=== PATIENT | female | born 1945 | race Caucasian/White ===

== ENCOUNTER 2016-09-28 11:39 | Inpatient (IN) | payer MEDICARE ==
[~2016-09-28] VITALS: Ht 157.5 cm; Wt 103.8 kg
[~2016-09-28 11:39] MED LIST: ALBU8.5H5 INH; DOXY100C15 PO; FLUT16SP INH; FLUT16SP NAS; FLUT1DIS5 IH; FLUT1DIS5 INH; LOVASTATIN PO; OXYC-302 PO; PRED5TAB25 PO; TIOT18CA INH; UNKNOWN INHALER
[2016-09-28] MEDS ORDERED: SODIUM CHLORIDE 0.9% 1,000 ML IV ONE (13:13)
[2016-09-28] MEDS ORDERED: LIDOCAINE 1%, 20ML SQ ONE (13:30)
[2016-09-28] MEDS ORDERED: CEFAZOLIN 1,000 MG IM ONE (13:30)
[2016-09-28] MEDS ORDERED: MORPHINE SULFATE 4 MG/ML, 1ML IV PRN (13:30)
[2016-09-28] MEDS ORDERED: SODIUM CHLORIDE FLUSH 10ML SYR IVF ONE (13:30)
[2016-09-28] MEDS ORDERED: LIDOCAINE 1%, 20ML ONE (13:40)
[2016-09-28] MEDS ORDERED: MORPHINE SULFATE 4 MG/ML, 1ML ONE (13:40)
[2016-09-28] MEDS ORDERED: CEFAZOLIN PMX 1GM/50ML 50 ML ONE (13:52)
[2016-09-28] MEDS ORDERED: CEFAZOLIN 1,000 MG IV ONE (14:00)
[2016-09-28 14:23] LABS: ASPARTATE AMINO TRANSFERASE 20 U/L (15-37); BLOOD UREA NITROGEN 24 mg/dL (7-18)
[2016-09-28 14:30] LABS: DIFF TOTAL CELLS COUNTED 100 CELL DIFF
[2016-09-28] MEDS ORDERED: PIPERACILLIN/TAZO 3.375 GM in SODIUM CHLORIDE 0.9% 50 ML IV ONE (14:30)
[2016-09-28] MEDS ORDERED: VANCOMYCIN PER PHARMACY MC PRN ×2 (14:30→17:30)
[2016-09-28 14:31] LABS: VERIFY COUNTS? YES
[2016-09-28] MEDS ORDERED: VANCOMYCIN 2,000 MG in SODIUM CHLORIDE 0.9% 500 ML IV ONE (15:00)
[2016-09-28] MEDS ORDERED: PHARMACOKINETIC CONSULTATION MC ONE ×2 (15:00→20:00)
[2016-09-28] MEDS ORDERED: PIPERACILLIN/TAZO/PMX 3.375GM 50 ML ONE (16:42)
[2016-09-28] MEDS ORDERED: POLYETHYLENE GLYCOL 17 GM PACKET PO PRN (17:30)
[2016-09-28] MEDS ORDERED: ENALAPRILAT 1.25 MG/ML, 2ML IVPush PRN (17:30)
[2016-09-28] MEDS ORDERED: HYDROcodone/APAP 5/325 TABLET PO PRN (17:30)
[2016-09-28] MEDS ORDERED: PIPERACILLIN/TAZO 3.375 GM in SODIUM CHLORIDE 0.9% 50 ML IV SCH (17:30)
[2016-09-28] MEDS ORDERED: PROMETHAZINE 25 MG/ML, 1ML IM PRN (17:30)
[2016-09-28] MEDS ORDERED: PHARMACY MAY ADJ FOR RENAL FX MC PRN (17:30)
[2016-09-28] MEDS ORDERED: ENOXAPARIN 40 MG/0.4 ML SQ SCH (17:30)
[2016-09-28] MEDS ORDERED: SODIUM CHLORIDE 0.9% 1,000ML IVBOLUS ONE (17:30)
[2016-09-28] MEDS ORDERED: LABETALOL 5MG/ML, 20ML IVPush PRN (17:30)
[2016-09-28] MEDS ORDERED: DOCUSATE 100 MG CAPSULE PO PRN (17:30)
[2016-09-28] MEDS ORDERED: BISACODYL 10 MG SUPP PR PRN (17:30)
[2016-09-28] MEDS ORDERED: DEXTROSE 50%, 50ML SYRINGE IVPush PRN (18:00)
[2016-09-28] MEDS ORDERED: GLUCAGON 1 MG IM PRN (18:00)
[2016-09-28] MEDS ORDERED: DEXTROSE 4 GM TAB.CHEW PO PRN (18:00)
[2016-09-28] MEDS ORDERED: PHARMACOKINETIC MONITORING MC PRN (20:00)
[2016-09-28] MEDS ORDERED: VANCOMYCIN 2,000 MG in SODIUM CHLORIDE 0.9% 500 ML IV SCH (21:00)
[2016-09-28] MEDS: INSULIN ASPART 100 UNITS/ML, PEN SQ-INSULIN SCH (21:00)
[2016-09-28] MEDS: SODIUM CHLORIDE 0.9% 1,000 ML IV SCH (21:36)
[2016-09-28] MEDS: SODIUM CHLORIDE FLUSH 10ML SYR IVF SCH (21:38)
[2016-09-28] MEDS: ENOXAPARIN 30 MG/0.3 ML SQ SCH (21:38)
[2016-09-28] MEDS: ALBUTEROL/IPRATROPIUM 2.5MG/0.5MG, 3 ML NPPB SCH (22:25)
[2016-09-29 02:00] VITALS: BP 116/72
[2016-09-29] MEDS: PIPERACILLIN/TAZO/PMX 3.375GM 50 ML IV SCH ×4 (03:01→20:28)
[2016-09-29] MEDS: ACETAMINOPHEN 325 MG TABLET PO PRN (03:15)
[2016-09-29] MEDS: morphine SULFATE 10 MG/ML, 1ML IVPush PRN (03:35)
[2016-09-29] MEDS: METOCLOPRAMIDE 5 MG/ML, 2ML IVPush PRN (03:35)
[2016-09-29 04:36] VITALS: BP 121/68
[2016-09-29 05:47] LABS: ASPARTATE AMINO TRANSFERASE 16 U/L (15-37); BLOOD UREA NITROGEN 25 mg/dL (7-18)
[2016-09-29 06:03] LABS: DIFF TOTAL CELLS COUNTED 100 CELL DIFF
[2016-09-29 06:04] LABS: VERIFY COUNTS? YES
[2016-09-29] MEDS: INSULIN ASPART 100 UNITS/ML, PEN SQ-INSULIN SCH ×4 (07:00→20:28)
[2016-09-29 07:15] VITALS: BP 97/62
[2016-09-29] MEDS: ALBUTEROL/IPRATROPIUM 2.5MG/0.5MG, 3 ML NPPB SCH ×3 (07:45→20:05)
[2016-09-29] MEDS: SENNA/DOCUSATE TABLET PO SCH (09:00)
[2016-09-29] MEDS ORDERED: MAGNESIUM SULFATE PMX 4GM/100M 100 ML IV ONE (10:00)
[2016-09-29] MEDS: FLUTICASONE NASAL SPRAY 16GM NAS SCH (10:11)
[2016-09-29] MEDS: FLUTICASONE/VILANTEROL 200-25MCG/INH INH SCH (10:11)
[2016-09-29] MEDS: SODIUM CHLORIDE FLUSH 10ML SYR IVF SCH ×2 (10:12→20:28)
[2016-09-29] MEDS: SODIUM CHLORIDE 0.9% 1,000 ML IV SCH (10:12)
[2016-09-29] MEDS: POTASSIUM CHLORIDE 20 MEQ TAB.ER.PRT PO SCH ×2 (12:18→17:19)
[2016-09-29] MEDS: ONDANSETRON 2MG/ML, 2ML IVPush PRN (12:31)
[2016-09-29 13:14] VITALS: BP 93/57
[2016-09-29 18:33] VITALS: BP 92/46
[2016-09-29] MEDS: ENOXAPARIN 30 MG/0.3 ML SQ SCH (20:28)
[2016-09-29] MEDS ORDERED: PHARMACY MAY ADJ FOR RENAL FX MC PRN (22:00)
[2016-09-29] MEDS ORDERED: GLUCAGON 1 MG IM PRN (22:00)
[2016-09-29] MEDS ORDERED: DOCUSATE 100 MG CAPSULE PO PRN (22:00)
[2016-09-29] MEDS ORDERED: PHARMACOKINETIC MONITORING MC PRN (22:00)
[2016-09-29] MEDS ORDERED: DEXTROSE 50%, 50ML SYRINGE IVPush PRN (22:00)
[2016-09-29] MEDS ORDERED: BISACODYL 10 MG SUPP PR PRN (22:00)
[2016-09-30] MEDS: SODIUM CHLORIDE 0.9% 1,000 ML IV SCH ×2 (00:59→16:00)
[2016-09-30 01:36] VITALS: BP 112/67
[2016-09-30] MEDS: PIPERACILLIN/TAZO/PMX 3.375GM 50 ML IV SCH ×2 (03:08→08:59)
[2016-09-30] MEDS: ONDANSETRON 2MG/ML, 2ML IVPush PRN (03:51)
[2016-09-30 05:37] LABS: BLOOD UREA NITROGEN 44 mg/dL (7-18)
[2016-09-30] MEDS ORDERED: VANCOMYCIN 2,000 MG in SODIUM CHLORIDE 0.9% 500 ML IV SCH (06:00)
[2016-09-30] MEDS: INSULIN ASPART 100 UNITS/ML, PEN SQ-INSULIN SCH ×4 (07:00→21:00)
[2016-09-30 07:10] VITALS: BP 127/61
[2016-09-30 07:12] LABS: DIFF TOTAL CELLS COUNTED 100 CELL DIFF
[2016-09-30 07:15] LABS: ANISOCYTOSIS 1+; VERIFY COUNTS? YES
[2016-09-30] MEDS: ALBUTEROL/IPRATROPIUM 2.5MG/0.5MG, 3 ML NPPB SCH ×2 (07:45→14:45)
[2016-09-30] MEDS: POTASSIUM CHLORIDE 20 MEQ TAB.ER.PRT PO SCH ×2 (08:58→12:28)
[2016-09-30] MEDS: FLUTICASONE NASAL SPRAY 16GM NAS SCH (08:58)
[2016-09-30] MEDS: FLUTICASONE/VILANTEROL 200-25MCG/INH INH SCH (08:58)
[2016-09-30] MEDS: MAGNESIUM OXIDE 400 MG TABLET PO SCH (08:58)
[2016-09-30] MEDS: SODIUM CHLORIDE FLUSH 10ML SYR IVF SCH ×2 (08:59→21:12)
[2016-09-30] MEDS: SENNA/DOCUSATE TABLET PO SCH (08:59)
[2016-09-30] MEDS: HEPARIN 5,000 UNITS/ML, 1ML SQ SCH ×2 (12:27→21:12)
[2016-09-30] MEDS: LINEZOLID PMX 600MG/300ML 300 ML IV SCH (12:27)
[2016-09-30 14:00] VITALS: BP 125/62
[2016-09-30] MEDS ORDERED: ALBUTEROL SULFATE 2.5 MG/3 ML NPPB PRN (15:00)
[2016-09-30] MEDS: PIPERACILLIN/TAZO 2.25 GM in NS 50 ML IV SCH ×2 (15:47→22:27)
[2016-09-30] MEDS: ALBUTEROL SULFATE 2.5 MG/3 ML NPPB SCH ×2 (16:00→21:00)
[2016-09-30 19:29] VITALS: BP 119/69
[2016-09-30] MEDS: METOCLOPRAMIDE 5 MG/ML, 2ML IVPush PRN (21:00)
[2016-10-01 02:00] VITALS: BP 134/64
[2016-10-01] MEDS: SODIUM CHLORIDE 0.9% 1,000 ML IV SCH ×3 (02:00→23:35)
[2016-10-01] MEDS ORDERED: CALCIUM CARBONATE 500 MG TAB.CHEW PO PRN (03:30)
[2016-10-01] MEDS: HEPARIN 5,000 UNITS/ML, 1ML SQ SCH ×3 (05:00→21:29)
[2016-10-01 05:54] LABS: ASPARTATE AMINO TRANSFERASE 12 U/L (15-37); BLOOD UREA NITROGEN 58 mg/dL (7-18)
[2016-10-01] MEDS: INSULIN ASPART 100 UNITS/ML, PEN SQ-INSULIN SCH ×4 (07:00→21:00)
[2016-10-01 07:11] VITALS: BP 131/50
[2016-10-01] MEDS: FLUTICASONE NASAL SPRAY 16GM NAS SCH (08:23)
[2016-10-01] MEDS: PIPERACILLIN/TAZO/PMX 2.25GM 50 ML IVPB SCH ×2 (08:23→16:56)
[2016-10-01] MEDS: FLUTICASONE/VILANTEROL 200-25MCG/INH INH SCH (08:24)
[2016-10-01] MEDS: SENNA/DOCUSATE TABLET PO SCH (08:24)
[2016-10-01] MEDS: SODIUM CHLORIDE FLUSH 10ML SYR IVF SCH ×2 (08:24→21:29)
[2016-10-01] MEDS: MAGNESIUM OXIDE 400 MG TABLET PO SCH (08:24)
[2016-10-01] MEDS: ALBUTEROL SULFATE 2.5 MG/3 ML NPPB SCH ×3 (08:35→21:00)
[2016-10-01] MEDS: LINEZOLID PMX 600MG/300ML 300 ML IV SCH ×3 (11:51→23:35)
[2016-10-01 14:02] VITALS: BP 118/69
[2016-10-01 20:00] VITALS: BP 108/66
[2016-10-02 01:31] VITALS: BP 124/76
[2016-10-02] MEDS: PIPERACILLIN/TAZO/PMX 2.25GM 50 ML IVPB SCH ×3 (01:32→17:12)
[2016-10-02] MEDS: HEPARIN 5,000 UNITS/ML, 1ML SQ SCH ×3 (05:22→21:26)
[2016-10-02 06:32] LABS: ASPARTATE AMINO TRANSFERASE 13 U/L (15-37); BLOOD UREA NITROGEN 63 mg/dL (7-18)
[2016-10-02] MEDS: INSULIN ASPART 100 UNITS/ML, PEN SQ-INSULIN SCH ×4 (07:00→20:43)
[2016-10-02 07:30] VITALS: BP 153/83
[2016-10-02] MEDS: ONDANSETRON 2MG/ML, 2ML IVPush PRN (07:55)
[2016-10-02] MEDS: SENNA/DOCUSATE TABLET PO SCH (09:00)
[2016-10-02] MEDS: MAGNESIUM OXIDE 400 MG TABLET PO SCH (09:00)
[2016-10-02] MEDS: FLUTICASONE/VILANTEROL 200-25MCG/INH INH SCH (09:14)
[2016-10-02] MEDS: FLUTICASONE NASAL SPRAY 16GM NAS SCH (09:15)
[2016-10-02] MEDS: SODIUM CHLORIDE FLUSH 10ML SYR IVF SCH ×2 (09:22→21:27)
[2016-10-02] MEDS: ALBUTEROL SULFATE 2.5 MG/3 ML NPPB SCH (10:45)
[2016-10-02] MEDS: SODIUM CHLORIDE 0.9% 1,000 ML IV SCH ×2 (12:50→21:27)
[2016-10-02] MEDS: LINEZOLID PMX 600MG/300ML 300 ML IV SCH (12:50)
[2016-10-02 14:10] VITALS: BP 154/73
[2016-10-02] MEDS: FUROSEMIDE 80 MG TABLET PO SCH (17:09)
[2016-10-02 22:00] VITALS: BP 143/83
[2016-10-03] MEDS: LINEZOLID PMX 600MG/300ML 300 ML IV SCH ×2 (00:46→12:05)
[2016-10-03 02:00] VITALS: BP 118/67
[2016-10-03] MEDS: HEPARIN 5,000 UNITS/ML, 1ML SQ SCH ×3 (05:44→21:20)
[2016-10-03] MEDS: FUROSEMIDE 80 MG TABLET PO SCH ×2 (05:44→17:15)
[2016-10-03 05:53] LABS: ASPARTATE AMINO TRANSFERASE 12 U/L (15-37); BLOOD UREA NITROGEN 73 mg/dL (7-18)
[2016-10-03] MEDS: INSULIN ASPART 100 UNITS/ML, PEN SQ-INSULIN SCH ×4 (07:00→20:25)
[2016-10-03] MEDS: SENNA/DOCUSATE TABLET PO SCH (09:00)
[2016-10-03] MEDS: FLUTICASONE NASAL SPRAY 16GM NAS SCH (09:05)
[2016-10-03] MEDS: SODIUM CHLORIDE FLUSH 10ML SYR IVF SCH ×2 (09:05→21:20)
[2016-10-03] MEDS: FLUTICASONE/VILANTEROL 200-25MCG/INH INH SCH (09:05)
[2016-10-03] MEDS: MAGNESIUM OXIDE 400 MG TABLET PO SCH (09:05)
[2016-10-03] MEDS: ALBUTEROL SULFATE 2.5 MG/3 ML NPPB SCH ×2 (10:45→20:23)
[2016-10-03] MEDS: LACTOBACILLUS CHEW TABLET PO SCH ×3 (12:01→20:26)
[2016-10-03] MEDS: morphine SULFATE 10 MG/ML, 1ML IVPush PRN (12:18)
[2016-10-03 13:40] VITALS: BP 125/60
[2016-10-03] MEDS: ONDANSETRON 2MG/ML, 2ML IVPush PRN (15:59)
[2016-10-03] MEDS: PANTOPRAZOLE 40 MG IV IVPush SCH (17:15)
[2016-10-03 17:23] VITALS: BP 167/63
[2016-10-03 20:00] VITALS: BP 159/58
[2016-10-03 20:58] LABS: GAS OBC PASS; GASTRIC OCCULT BLD POSITIVE (NEGATIVE); GASTRIC PH 4 (1-7)
[2016-10-03] MEDS: METOCLOPRAMIDE 5 MG/ML, 2ML IVPush PRN (21:20)
[2016-10-04] MEDS: LINEZOLID PMX 600MG/300ML 300 ML IV SCH ×2 (00:55→12:36)
[2016-10-04 02:00] VITALS: BP 123/51
[2016-10-04 04:06] LABS: COMPLEMENT C3 142 mg/dL (82-167); COMPLEMENT C4 21 mg/dL (14-44); COMPLEMENT TOTAL (CH50) >60 U/mL (42-60)
[2016-10-04] MEDS: FUROSEMIDE 80 MG TABLET PO SCH ×2 (06:00→17:15)
[2016-10-04] MEDS: LACTOBACILLUS CHEW TABLET PO SCH ×4 (06:00→21:29)
[2016-10-04 06:56] LABS: ASPARTATE AMINO TRANSFERASE 52 U/L (15-37); BLOOD UREA NITROGEN 100 mg/dL (7-18)
[2016-10-04] MEDS: HEPARIN 5,000 UNITS/ML, 1ML SQ SCH (07:00)
[2016-10-04] MEDS: INSULIN ASPART 100 UNITS/ML, PEN SQ-INSULIN SCH ×4 (07:00→20:11)
[2016-10-04 08:05] VITALS: BP 117/43
[2016-10-04 08:16] LABS: DIFF TOTAL CELLS COUNTED 100 CELL DIFF
[2016-10-04 08:18] LABS: VERIFY COUNTS? YES
[2016-10-04 08:19] LABS: ANISOCYTOSIS 1+
[2016-10-04] MEDS ORDERED: PROMETHAZINE 12.5 MG SUPP PR PRN (09:00)
[2016-10-04] MEDS: MAGNESIUM OXIDE 400 MG TABLET PO SCH (09:00)
[2016-10-04] MEDS: SENNA/DOCUSATE TABLET PO SCH (09:00)
[2016-10-04] MEDS: ALBUTEROL SULFATE 2.5 MG/3 ML NPPB SCH ×2 (10:41→20:54)
[2016-10-04] MEDS: SODIUM CHLORIDE FLUSH 10ML SYR IVF SCH ×2 (12:36→21:33)
[2016-10-04] MEDS: PANTOPRAZOLE 40 MG IV IVPush SCH ×2 (12:36→17:14)
[2016-10-04] MEDS: FLUTICASONE/VILANTEROL 200-25MCG/INH INH SCH (12:36)
[2016-10-04] MEDS: ONDANSETRON 2MG/ML, 2ML IVPush SCH ×3 (12:36→21:56)
[2016-10-04] MEDS: FLUTICASONE NASAL SPRAY 16GM NAS SCH (12:36)
[2016-10-04 14:31] LABS: OCCBLD OBC PASS
[2016-10-04 17:30] VITALS: BP 130/72
[2016-10-04 20:00] VITALS: BP 132/55
[2016-10-04] MEDS: morphine SULFATE 10 MG/ML, 1ML IVPush PRN (21:29)
[2016-10-05] VITALS (8 sets, daily range): BP systolic 104–136; BP diastolic 49–68
[2016-10-05] MEDS: LINEZOLID PMX 600MG/300ML 300 ML IV SCH ×2 (00:44→11:55)
[2016-10-05 04:37] LABS: ASPARTATE AMINO TRANSFERASE 54 U/L (15-37)
[2016-10-05 04:48] LABS: BLOOD UREA NITROGEN 115 mg/dL (7-18)
[2016-10-05 05:52] LABS: DIFF TOTAL CELLS COUNTED 100 CELL DIFF
[2016-10-05] MEDS: ONDANSETRON 2MG/ML, 2ML IVPush SCH ×4 (05:53→23:30)
[2016-10-05] MEDS: LACTOBACILLUS CHEW TABLET PO SCH ×4 (05:53→20:14)
[2016-10-05] MEDS: PANTOPRAZOLE 40 MG IV IVPush SCH ×2 (05:53→17:11)
[2016-10-05 05:55] LABS: ANISOCYTOSIS 1+; VERIFY COUNTS? YES
[2016-10-05] MEDS: INSULIN ASPART 100 UNITS/ML, PEN SQ-INSULIN SCH ×4 (07:00→20:23)
[2016-10-05] MEDS ORDERED: LIDOCAINE 1%, 10ML ONE (08:02)
[2016-10-05] MEDS ORDERED: PROPOFOL 10 MG/ML, 20ML ONE (08:02)
[2016-10-05] MEDS ORDERED: SUCCINYLCHOLINE 20 MG/ML, 10ML ONE (08:02)
[2016-10-05] MEDS ORDERED: FENTANYL PF 100 MCG/2ML ONE (08:03)
[2016-10-05] MEDS: ALBUTEROL SULFATE 2.5 MG/3 ML NPPB SCH ×2 (08:05→21:00)
[2016-10-05] MEDS: SENNA/DOCUSATE TABLET PO SCH (08:14)
[2016-10-05] MEDS: SODIUM CHLORIDE FLUSH 10ML SYR IVF SCH ×2 (08:15→20:15)
[2016-10-05] MEDS ORDERED: hydrALAzine 20 MG/ML, 1ML IV PRN (08:30)
[2016-10-05] MEDS ORDERED: OXYcodone 5 MG/5 ML ORAL.SOL UDC PO PRN (08:30)
[2016-10-05] MEDS ORDERED: PROMETHAZINE 25 MG/ML, 1ML IV PRN (08:30)
[2016-10-05] MEDS ORDERED: LABETALOL 5MG/ML, 20ML IV PRN (08:30)
[2016-10-05] MEDS ORDERED: ONDANSETRON 2MG/ML, 2ML IVPush PRN (08:30)
[2016-10-05] MEDS ORDERED: FENTANYL PF 100 MCG/2ML IV PRN (08:30)
[2016-10-05] MEDS: FLUTICASONE/VILANTEROL 200-25MCG/INH INH SCH (09:53)
[2016-10-05] MEDS: FLUTICASONE NASAL SPRAY 16GM NAS SCH (09:53)
[2016-10-05] MEDS: FUROSEMIDE 80 MG TABLET PO SCH ×2 (09:54→17:24)
[2016-10-05] MEDS: MAGNESIUM OXIDE 400 MG TABLET PO SCH (09:54)
[2016-10-05] MEDS: ACYCLOVIR OINT 5%, 15GM TP SCH ×4 (10:30→21:00)
[2016-10-05 11:19] LABS: TOTAL IRON BINDING CAPACITY 240 mcg/dL (250-450)
[2016-10-05] MEDS: SODIUM BICARBONATE 650 MG TABLET PO SCH ×2 (14:43→20:14)
[2016-10-06] MEDS: LINEZOLID PMX 600MG/300ML 300 ML IV SCH ×3 (00:07→23:31)
[2016-10-06 00:23] VITALS: BP 113/65
[2016-10-06] MEDS: LACTOBACILLUS CHEW TABLET PO SCH ×4 (05:11→20:34)
[2016-10-06] MEDS: PANTOPRAZOLE 40 MG IV IVPush SCH ×2 (05:11→16:29)
[2016-10-06] MEDS: ONDANSETRON 2MG/ML, 2ML IVPush SCH ×4 (05:17→23:31)
[2016-10-06] MEDS: FUROSEMIDE 80 MG TABLET PO SCH ×2 (05:34→20:34)
[2016-10-06] MEDS: ACYCLOVIR OINT 5%, 15GM TP SCH ×5 (05:38→21:00)
[2016-10-06 06:35] LABS: ASPARTATE AMINO TRANSFERASE 42 U/L (15-37)
[2016-10-06 06:44] LABS: BLOOD UREA NITROGEN 119 mg/dL (7-18)
[2016-10-06 06:58] LABS: DIFF TOTAL CELLS COUNTED 100 CELL DIFF
[2016-10-06] MEDS: INSULIN ASPART 100 UNITS/ML, PEN SQ-INSULIN SCH ×4 (07:00→20:04)
[2016-10-06 07:02] LABS: VERIFY COUNTS? YES
[2016-10-06 07:03] LABS: ANISOCYTOSIS 1+
[2016-10-06] MEDS: ALBUTEROL SULFATE 2.5 MG/3 ML NPPB SCH ×2 (07:45→19:22)
[2016-10-06 07:55] VITALS: BP 153/65
[2016-10-06] MEDS: SENNA/DOCUSATE TABLET PO SCH (09:00)
[2016-10-06] MEDS: FLUTICASONE NASAL SPRAY 16GM NAS SCH (09:53)
[2016-10-06] MEDS: MAGNESIUM OXIDE 400 MG TABLET PO SCH (09:53)
[2016-10-06] MEDS: SODIUM CHLORIDE FLUSH 10ML SYR IVF SCH ×2 (09:53→20:34)
[2016-10-06] MEDS: FLUTICASONE/VILANTEROL 200-25MCG/INH INH SCH (09:53)
[2016-10-06] MEDS: SODIUM BICARBONATE 650 MG TABLET PO SCH ×2 (09:54→20:34)
[2016-10-06] MEDS: CALCIUM ACETATE 667 MG CAPSULE PO SCH ×2 (11:46→16:29)
[2016-10-06 13:37] VITALS: BP 145/62
[2016-10-06 19:52] VITALS: BP 146/69
[2016-10-07 02:00] VITALS: BP 144/68
[2016-10-07] MEDS: ACYCLOVIR OINT 5%, 15GM TP SCH ×4 (05:03→17:51)
[2016-10-07] MEDS: PANTOPRAZOLE 40 MG IV IVPush SCH ×2 (05:04→17:50)
[2016-10-07] MEDS: FUROSEMIDE 80 MG TABLET PO SCH ×2 (05:04→17:50)
[2016-10-07] MEDS: ONDANSETRON 2MG/ML, 2ML IVPush SCH ×3 (05:04→17:50)
[2016-10-07] MEDS: LACTOBACILLUS CHEW TABLET PO SCH ×3 (05:04→16:00)
[2016-10-07 05:50] LABS: ASPARTATE AMINO TRANSFERASE 30 U/L (15-37)
[2016-10-07 05:53] LABS: BLOOD UREA NITROGEN 114 mg/dL (7-18)
[2016-10-07 06:16] LABS: DIFF TOTAL CELLS COUNTED 100 CELL DIFF
[2016-10-07 06:18] LABS: ANISOCYTOSIS 1+; VERIFY COUNTS? YES
[2016-10-07] MEDS: INSULIN ASPART 100 UNITS/ML, PEN SQ-INSULIN SCH ×4 (07:00→21:00)
[2016-10-07 07:08] VITALS: BP 134/65
[2016-10-07] MEDS: CALCIUM ACETATE 667 MG CAPSULE PO SCH ×3 (08:18→17:50)
[2016-10-07] MEDS: SENNA/DOCUSATE TABLET PO SCH (09:00)
[2016-10-07] MEDS: FLUTICASONE NASAL SPRAY 16GM NAS SCH (09:00)
[2016-10-07] MEDS: ALBUTEROL SULFATE 2.5 MG/3 ML NPPB SCH ×2 (09:00→21:00)
[2016-10-07] MEDS: SODIUM CHLORIDE FLUSH 10ML SYR IVF SCH (09:00)
[2016-10-07] MEDS: FLUTICASONE/VILANTEROL 200-25MCG/INH INH SCH (09:00)
[2016-10-07] MEDS: MAGNESIUM OXIDE 400 MG TABLET PO SCH (09:00)
[2016-10-07] MEDS: SODIUM BICARBONATE 650 MG TABLET PO SCH (09:00)
[2016-10-07] MEDS: LINEZOLID PMX 600MG/300ML 300 ML IV SCH (12:00)
[2016-10-07] MEDS ORDERED: MIDAZOLAM 1 MG/ML, 5ML ONE ×2 (15:46)
[2016-10-07] MEDS ORDERED: FLUMAZENIL 0.1 MG/1 ML, 5ML ONE (15:47)
[2016-10-07] MEDS ORDERED: FENTANYL PF 100 MCG/2ML ONE (15:47)
[2016-10-07] MEDS ORDERED: NALOXONE 1 MG/ML, 2ML ONE (15:47)
[2016-10-07 23:11] VITALS: BP 122/60
[2016-10-08] MEDS: SODIUM CHLORIDE FLUSH 10ML SYR IVF SCH ×3 (00:01→20:44)
[2016-10-08] MEDS: ACYCLOVIR OINT 5%, 15GM TP SCH ×6 (00:01→20:45)
[2016-10-08] MEDS: ONDANSETRON 2MG/ML, 2ML IVPush SCH ×5 (00:01→23:15)
[2016-10-08] MEDS: LINEZOLID PMX 600MG/300ML 300 ML IV SCH ×3 (05:00→17:47)
[2016-10-08] MEDS: PANTOPRAZOLE 40 MG IV IVPush SCH (05:19)
[2016-10-08] MEDS: LACTOBACILLUS CHEW TABLET PO SCH ×5 (05:20→20:45)
[2016-10-08] MEDS: FUROSEMIDE 80 MG TABLET PO SCH (05:20)
[2016-10-08 06:30] LABS: ASPARTATE AMINO TRANSFERASE 30 U/L (15-37); BLOOD UREA NITROGEN 63 mg/dL (7-18); TOTAL IRON BINDING CAPACITY 270 mcg/dL (250-450)
[2016-10-08 06:44] LABS: DIFF TOTAL CELLS COUNTED 100 CELL DIFF
[2016-10-08 06:48] LABS: ANISOCYTOSIS 1+; VERIFY COUNTS? YES
[2016-10-08] MEDS: INSULIN ASPART 100 UNITS/ML, PEN SQ-INSULIN SCH ×4 (07:00→20:35)
[2016-10-08 07:25] VITALS: BP 128/57
[2016-10-08] MEDS: ALBUTEROL SULFATE 2.5 MG/3 ML NPPB SCH ×2 (08:30→20:38)
[2016-10-08] MEDS: CALCIUM ACETATE 667 MG CAPSULE PO SCH ×3 (10:49→17:57)
[2016-10-08] MEDS: FLUTICASONE/VILANTEROL 200-25MCG/INH INH SCH (10:49)
[2016-10-08] MEDS: SODIUM BICARBONATE 650 MG TABLET PO SCH ×2 (10:50)
[2016-10-08] MEDS: MAGNESIUM OXIDE 400 MG TABLET PO SCH (10:50)
[2016-10-08] MEDS: FLUTICASONE NASAL SPRAY 16GM NAS SCH (10:50)
[2016-10-08] MEDS: SENNA/DOCUSATE TABLET PO SCH (11:25)
[2016-10-08 13:00] VITALS: BP 159/50
[2016-10-08 13:18] LABS: HEP B SURF. AB 4.2 mIU/mL (0.0-10.0)
[2016-10-08] MEDS: IRON SUCROSE COMPLEX 100MG/5ML IV SCH (17:45)
[2016-10-08] MEDS: DARBEPOETIN 60 MCG/ML SQ SCH (17:46)
[2016-10-08 20:02] VITALS: BP 150/69
[2016-10-08] MEDS: PANTOPROZOLE 40MG TABLET PO SCH (20:45)
[2016-10-09 00:15] VITALS: BP 118/60
[2016-10-09] MEDS: LACTOBACILLUS CHEW TABLET PO SCH ×4 (05:06→20:16)
[2016-10-09] MEDS: LINEZOLID PMX 600MG/300ML 300 ML IV SCH ×2 (05:06→17:33)
[2016-10-09] MEDS: ONDANSETRON 2MG/ML, 2ML IVPush SCH ×4 (05:06→23:15)
[2016-10-09] MEDS: ACYCLOVIR OINT 5%, 15GM TP SCH ×5 (05:07→20:17)
[2016-10-09 05:59] LABS: BLOOD UREA NITROGEN 40 mg/dL (7-18)
[2016-10-09 06:04] LABS: ASPARTATE AMINO TRANSFERASE 26 U/L (15-37)
[2016-10-09 06:40] LABS: DIFF TOTAL CELLS COUNTED 100 CELL DIFF
[2016-10-09 06:43] LABS: ANISOCYTOSIS 1+
[2016-10-09 06:48] LABS: VERIFY COUNTS? YES
[2016-10-09 07:55] VITALS: BP 140/64
[2016-10-09] MEDS: ALBUTEROL SULFATE 2.5 MG/3 ML NPPB SCH ×2 (08:50→20:34)
[2016-10-09] MEDS: SENNA/DOCUSATE TABLET PO SCH (09:14)
[2016-10-09] MEDS: INSULIN ASPART 100 UNITS/ML, PEN SQ-INSULIN SCH ×4 (09:25→20:17)
[2016-10-09] MEDS: CALCIUM ACETATE 667 MG CAPSULE PO SCH ×3 (09:26→17:33)
[2016-10-09] MEDS: SODIUM CHLORIDE FLUSH 10ML SYR IVF SCH ×2 (09:26→20:17)
[2016-10-09] MEDS: FLUTICASONE/VILANTEROL 200-25MCG/INH INH SCH (09:26)
[2016-10-09] MEDS: FUROSEMIDE 80 MG TABLET PO SCH (09:27)
[2016-10-09] MEDS: FLUTICASONE NASAL SPRAY 16GM NAS SCH (09:27)
[2016-10-09] MEDS: PANTOPROZOLE 40MG TABLET PO SCH ×2 (09:27→20:16)
[2016-10-09] MEDS: MAGNESIUM OXIDE 400 MG TABLET PO SCH (09:27)
[2016-10-09] MEDS: IRON SUCROSE COMPLEX 100MG/5ML IV SCH (12:35)
[2016-10-09 13:53] VITALS: BP 132/70
[2016-10-09 20:00] VITALS: BP 149/64
[2016-10-10 02:00] VITALS: BP 151/58
[2016-10-10] MEDS: ONDANSETRON 2MG/ML, 2ML IVPush SCH ×4 (05:11→22:54)
[2016-10-10] MEDS: LINEZOLID PMX 600MG/300ML 300 ML IV SCH ×2 (05:12→17:09)
[2016-10-10] MEDS: LACTOBACILLUS CHEW TABLET PO SCH ×5 (05:12→21:00)
[2016-10-10] MEDS: ACYCLOVIR OINT 5%, 15GM TP SCH ×5 (05:12→21:11)
[2016-10-10 06:16] LABS: ASPARTATE AMINO TRANSFERASE 12 U/L (15-37); BLOOD UREA NITROGEN 45 mg/dL (7-18)
[2016-10-10 06:34] LABS: DIFF TOTAL CELLS COUNTED 100 CELL DIFF
[2016-10-10 06:36] LABS: VERIFY COUNTS? YES
[2016-10-10 06:37] LABS: ANISOCYTOSIS 1+
[2016-10-10 06:38] LABS: SMALL PLATELETS 1+
[2016-10-10] MEDS: INSULIN ASPART 100 UNITS/ML, PEN SQ-INSULIN SCH ×4 (07:00→21:00)
[2016-10-10 08:30] VITALS: BP 137/73
[2016-10-10] MEDS: FUROSEMIDE 80 MG TABLET PO SCH (09:00)
[2016-10-10] MEDS: ALBUTEROL SULFATE 2.5 MG/3 ML NPPB SCH ×2 (09:00→20:23)
[2016-10-10] MEDS: SENNA/DOCUSATE TABLET PO SCH (09:00)
[2016-10-10] MEDS: MAGNESIUM OXIDE 400 MG TABLET PO SCH (09:00)
[2016-10-10] MEDS: FLUTICASONE NASAL SPRAY 16GM NAS SCH (09:04)
[2016-10-10] MEDS: CALCIUM ACETATE 667 MG CAPSULE PO SCH ×3 (09:04→17:11)
[2016-10-10] MEDS: SODIUM CHLORIDE FLUSH 10ML SYR IVF SCH ×2 (09:04→21:08)
[2016-10-10] MEDS: GUAIFENESIN ER 600 MG TABLET PO PRN (09:04)
[2016-10-10] MEDS: FLUTICASONE/VILANTEROL 200-25MCG/INH INH SCH (09:04)
[2016-10-10] MEDS: PANTOPROZOLE 40MG TABLET PO SCH ×2 (09:11→21:08)
[2016-10-10] MEDS: IRON SUCROSE COMPLEX 100MG/5ML IV SCH (11:42)
[2016-10-10] MEDS: LOPERAMIDE 2 MG CAPSULE PO PRN (14:46)
[2016-10-10 16:10] VITALS: BP 132/75
[2016-10-10 19:57] VITALS: BP 134/53
[2016-10-11 02:00] VITALS: BP 123/62
[2016-10-11 05:12] LABS: BLOOD UREA NITROGEN 22 mg/dL (7-18)
[2016-10-11] MEDS: ONDANSETRON 2MG/ML, 2ML IVPush SCH ×4 (05:51→18:30)
[2016-10-11] MEDS: LINEZOLID PMX 600MG/300ML 300 ML IV SCH ×2 (05:51→16:14)
[2016-10-11] MEDS: LACTOBACILLUS CHEW TABLET PO SCH ×4 (05:52→20:50)
[2016-10-11] MEDS: ACYCLOVIR OINT 5%, 15GM TP SCH ×5 (05:52→21:19)
[2016-10-11 06:40] LABS: DIFF TOTAL CELLS COUNTED 100 CELL DIFF
[2016-10-11 06:43] LABS: VERIFY COUNTS? YES
[2016-10-11 06:44] LABS: ANISOCYTOSIS 1+
[2016-10-11] MEDS: INSULIN ASPART 100 UNITS/ML, PEN SQ-INSULIN SCH ×4 (07:00→20:50)
[2016-10-11 07:45] VITALS: BP 125/56
[2016-10-11] MEDS ORDERED: MIDAZOLAM 1 MG/ML, 5ML ONE ×2 (08:27)
[2016-10-11] MEDS ORDERED: NALOXONE 1 MG/ML, 2ML ONE (08:28)
[2016-10-11] MEDS ORDERED: FLUMAZENIL 0.1 MG/1 ML, 5ML ONE (08:28)
[2016-10-11] MEDS ORDERED: LIDOCAINE 1%, 20ML ONE (08:28)
[2016-10-11] MEDS ORDERED: FENTANYL PF 100 MCG/2ML ONE ×2 (08:28)
[2016-10-11] MEDS: SENNA/DOCUSATE TABLET PO SCH (09:00)
[2016-10-11] MEDS: ALBUTEROL SULFATE 2.5 MG/3 ML NPPB SCH ×2 (10:05→19:27)
[2016-10-11] MEDS ORDERED: CATHFLO-ALTEPLASE 2 MG/2 ML CATHFLUSH ONE (10:30)
[2016-10-11] MEDS: FLUTICASONE NASAL SPRAY 16GM NAS SCH (10:38)
[2016-10-11] MEDS: FLUTICASONE/VILANTEROL 200-25MCG/INH INH SCH (10:38)
[2016-10-11] MEDS: PANTOPROZOLE 40MG TABLET PO SCH ×2 (10:39→20:50)
[2016-10-11] MEDS: SODIUM CHLORIDE FLUSH 10ML SYR IVF SCH ×2 (10:39→20:50)
[2016-10-11] MEDS: MAGNESIUM OXIDE 400 MG TABLET PO SCH (10:40)
[2016-10-11] MEDS: FUROSEMIDE 80 MG TABLET PO SCH (10:40)
[2016-10-11] MEDS: CALCIUM ACETATE 667 MG CAPSULE PO SCH ×3 (10:40→16:14)
[2016-10-11] MEDS: IRON SUCROSE COMPLEX 100MG/5ML IV SCH (12:26)
[2016-10-11 14:00] VITALS: BP 125/64
[2016-10-11 20:00] VITALS: BP 129/66
[2016-10-11] MEDS: GUAIFENESIN ER 600 MG TABLET PO PRN (21:19)
[2016-10-11] MEDS: NYSTATIN CRM 15GM TP SCH (21:19)
[2016-10-12] MEDS: ONDANSETRON 2MG/ML, 2ML IVPush SCH ×3 (01:23→11:30)
[2016-10-12] MEDS: LINEZOLID PMX 600MG/300ML 300 ML IV SCH ×2 (05:24→18:01)
[2016-10-12] MEDS: LACTOBACILLUS CHEW TABLET PO SCH ×4 (05:25→20:28)
[2016-10-12] MEDS: ACYCLOVIR OINT 5%, 15GM TP SCH ×5 (05:26→20:26)
[2016-10-12 05:28] VITALS: BP 130/65
[2016-10-12 06:26] LABS: BLOOD UREA NITROGEN 34 mg/dL (7-18)
[2016-10-12 06:52] LABS: DIFF TOTAL CELLS COUNTED 100 CELL DIFF
[2016-10-12 06:53] LABS: VERIFY COUNTS? YES
[2016-10-12 06:55] LABS: ANISOCYTOSIS 1+
[2016-10-12] MEDS: INSULIN ASPART 100 UNITS/ML, PEN SQ-INSULIN SCH ×4 (07:00→20:26)
[2016-10-12 08:38] VITALS: BP 154/65
[2016-10-12] MEDS: SENNA/DOCUSATE TABLET PO SCH (08:54)
[2016-10-12] MEDS: ALBUTEROL SULFATE 2.5 MG/3 ML NPPB SCH ×2 (09:00→19:25)
[2016-10-12] MEDS: FLUTICASONE NASAL SPRAY 16GM NAS SCH (09:08)
[2016-10-12] MEDS: CALCIUM ACETATE 667 MG CAPSULE PO SCH ×3 (09:15→18:01)
[2016-10-12] MEDS: PANTOPROZOLE 40MG TABLET PO SCH ×2 (09:17→20:28)
[2016-10-12] MEDS: MAGNESIUM OXIDE 400 MG TABLET PO SCH (09:18)
[2016-10-12] MEDS: FLUTICASONE/VILANTEROL 200-25MCG/INH INH SCH (09:19)
[2016-10-12] MEDS: NYSTATIN CRM 15GM TP SCH ×3 (09:20→20:26)
[2016-10-12] MEDS: SODIUM CHLORIDE FLUSH 10ML SYR IVF SCH ×2 (09:21→20:34)
[2016-10-12] MEDS: IRON SUCROSE COMPLEX 100MG/5ML IV SCH (13:10)
[2016-10-12] MEDS: FUROSEMIDE 80 MG TABLET PO SCH (13:19)
[2016-10-12 14:40] VITALS: BP 122/62
[2016-10-12] MEDS: GUAIFENESIN ER 600 MG TABLET PO PRN ×2 (16:21→20:28)
[2016-10-12 19:15] VITALS: BP 105/53
[2016-10-12] MEDS: ACETAMINOPHEN 325 MG TABLET PO PRN (20:45)
[2016-10-13 02:14] VITALS: BP 121/68
[2016-10-13] MEDS: LACTOBACILLUS CHEW TABLET PO SCH ×4 (05:33→21:28)
[2016-10-13] MEDS: LINEZOLID PMX 600MG/300ML 300 ML IV SCH ×2 (05:33→16:37)
[2016-10-13] MEDS: ACYCLOVIR OINT 5%, 15GM TP SCH ×5 (05:33→21:29)
[2016-10-13 06:27] LABS: BLOOD UREA NITROGEN 30 mg/dL (7-18)
[2016-10-13] MEDS: INSULIN ASPART 100 UNITS/ML, PEN SQ-INSULIN SCH ×4 (07:00→20:39)
[2016-10-13] MEDS: FLUTICASONE NASAL SPRAY 16GM NAS SCH (08:10)
[2016-10-13] MEDS: FLUTICASONE/VILANTEROL 200-25MCG/INH INH SCH (08:10)
[2016-10-13] MEDS: CALCIUM ACETATE 667 MG CAPSULE PO SCH ×3 (08:11→16:37)
[2016-10-13] MEDS: FUROSEMIDE 80 MG TABLET PO SCH (08:11)
[2016-10-13] MEDS: PANTOPROZOLE 40MG TABLET PO SCH ×2 (08:11→21:28)
[2016-10-13] MEDS: SODIUM CHLORIDE FLUSH 10ML SYR IVF SCH ×2 (08:11→21:28)
[2016-10-13] MEDS: MAGNESIUM OXIDE 400 MG TABLET PO SCH (08:11)
[2016-10-13] MEDS: SENNA/DOCUSATE TABLET PO SCH (08:12)
[2016-10-13 09:02] VITALS: BP 124/67
[2016-10-13] MEDS ORDERED: DIPHENHYDRAMINE 25 MG CAPSULE PO PRN (09:30)
[2016-10-13] MEDS: CLOTRIM/BETAMETH 1%/0.05% CRM TP SCH ×3 (09:30→21:28)
[2016-10-13] MEDS: ALBUTEROL SULFATE 2.5 MG/3 ML NPPB SCH ×2 (11:00→20:58)
[2016-10-13 15:02] VITALS: BP 114/58
[2016-10-13] MEDS: ONDANSETRON 2MG/ML, 2ML IVPush PRN (17:48)
[2016-10-13 19:33] VITALS: BP 120/55
[2016-10-13] MEDS: GUAIFENESIN ER 600 MG TABLET PO PRN (21:28)
[2016-10-14 02:45] VITALS: BP 126/72
[2016-10-14] MEDS: LACTOBACILLUS CHEW TABLET PO SCH ×4 (05:14→19:49)
[2016-10-14] MEDS: ACYCLOVIR OINT 5%, 15GM TP SCH ×5 (05:15→19:50)
[2016-10-14] MEDS: LINEZOLID PMX 600MG/300ML 300 ML IV SCH ×2 (05:15→16:59)
[2016-10-14 06:36] LABS: ASPARTATE AMINO TRANSFERASE 9 U/L (15-37); BLOOD UREA NITROGEN 38 mg/dL (7-18)
[2016-10-14] MEDS: INSULIN ASPART 100 UNITS/ML, PEN SQ-INSULIN SCH ×4 (07:00→19:50)
[2016-10-14] MEDS: ALBUTEROL SULFATE 2.5 MG/3 ML NPPB SCH (07:31)
[2016-10-14 07:41] VITALS: BP 124/67
[2016-10-14] MEDS: SENNA/DOCUSATE TABLET PO SCH (07:49)
[2016-10-14] MEDS: FLUTICASONE NASAL SPRAY 16GM NAS SCH (07:56)
[2016-10-14] MEDS: FLUTICASONE/VILANTEROL 200-25MCG/INH INH SCH (07:56)
[2016-10-14] MEDS: SODIUM CHLORIDE FLUSH 10ML SYR IVF SCH ×2 (07:57→19:49)
[2016-10-14] MEDS: PANTOPROZOLE 40MG TABLET PO SCH ×2 (07:57→19:49)
[2016-10-14] MEDS: FUROSEMIDE 80 MG TABLET PO SCH (07:57)
[2016-10-14] MEDS: MAGNESIUM OXIDE 400 MG TABLET PO SCH (07:57)
[2016-10-14] MEDS: CALCIUM ACETATE 667 MG CAPSULE PO SCH ×3 (07:57→16:59)
[2016-10-14] MEDS: CLOTRIM/BETAMETH 1%/0.05% CRM TP SCH ×2 (07:59→19:50)
[2016-10-14] MEDS ORDERED: ERGOCALCIFEROL 50,000 UNIT CAPSULE PO SCH (10:30)
[2016-10-14] MEDS: FLUCONAZOLE 200 MG/100 ML 100 ML IV SCH (11:31)
[2016-10-14] MEDS: FAMOTIDINE 20 MG TABLET PO SCH (12:07)
[2016-10-14] MEDS: LORATADINE 10 MG TABLET PO SCH (12:07)
[2016-10-14 13:47] VITALS: BP 123/69
[2016-10-14 19:13] VITALS: BP 153/69
[2016-10-15 03:00] VITALS: BP 149/67
[2016-10-15] MEDS: LINEZOLID PMX 600MG/300ML 300 ML IV SCH ×2 (05:19→19:03)
[2016-10-15] MEDS: ACYCLOVIR OINT 5%, 15GM TP SCH ×5 (05:19→21:57)
[2016-10-15] MEDS: LACTOBACILLUS CHEW TABLET PO SCH ×4 (05:19→21:57)
[2016-10-15 05:48] LABS: BLOOD UREA NITROGEN 43 mg/dL (7-18)
[2016-10-15] MEDS: INSULIN ASPART 100 UNITS/ML, PEN SQ-INSULIN SCH ×4 (07:00→21:00)
[2016-10-15 07:40] VITALS: BP 136/70
[2016-10-15] MEDS: SODIUM CHLORIDE FLUSH 10ML SYR IVF SCH ×2 (09:00→21:57)
[2016-10-15] MEDS: SENNA/DOCUSATE TABLET PO SCH (09:00)
[2016-10-15] MEDS: PANTOPROZOLE 40MG TABLET PO SCH ×2 (09:37→21:57)
[2016-10-15] MEDS: CALCIUM ACETATE 667 MG CAPSULE PO SCH ×3 (09:37→17:57)
[2016-10-15] MEDS: MAGNESIUM OXIDE 400 MG TABLET PO SCH (09:37)
[2016-10-15] MEDS: FUROSEMIDE 80 MG TABLET PO SCH (09:37)
[2016-10-15] MEDS: FLUTICASONE/VILANTEROL 200-25MCG/INH INH SCH (09:37)
[2016-10-15] MEDS: FLUTICASONE NASAL SPRAY 16GM NAS SCH (09:38)
[2016-10-15] MEDS: ONDANSETRON 2MG/ML, 2ML IVPush PRN (09:44)
[2016-10-15] MEDS: CLOTRIM/BETAMETH 1%/0.05% CRM TP SCH ×2 (09:44→21:57)
[2016-10-15] MEDS: GUAIFENESIN ER 600 MG TABLET PO PRN (10:39)
[2016-10-15] MEDS: FLUCONAZOLE 200 MG/100 ML 100 ML IV SCH (10:39)
[2016-10-15] MEDS: FAMOTIDINE 20 MG TABLET PO SCH (12:41)
[2016-10-15 13:25] VITALS: BP 147/66
[2016-10-15 18:26] VITALS: BP 128/70
[2016-10-15] MEDS: DARBEPOETIN 60 MCG/ML SQ SCH (21:57)
[2016-10-16 04:41] VITALS: BP_SYST 116; BP_SYST 92; BP_DIAS 54; BP_DIAS 65
[2016-10-16] MEDS: LINEZOLID PMX 600MG/300ML 300 ML IV SCH ×2 (05:03→17:17)
[2016-10-16] MEDS: LACTOBACILLUS CHEW TABLET PO SCH ×4 (05:03→21:21)
[2016-10-16] MEDS: ACYCLOVIR OINT 5%, 15GM TP SCH ×5 (05:03→21:34)
[2016-10-16 05:28] LABS: BLOOD UREA NITROGEN 30 mg/dL (7-18)
[2016-10-16] MEDS: INSULIN ASPART 100 UNITS/ML, PEN SQ-INSULIN SCH ×4 (07:00→21:00)
[2016-10-16 08:00] VITALS: BP 136/73
[2016-10-16] MEDS: CALCIUM ACETATE 667 MG CAPSULE PO SCH ×3 (08:32→17:17)
[2016-10-16] MEDS: FUROSEMIDE 80 MG TABLET PO SCH (08:32)
[2016-10-16] MEDS: MAGNESIUM OXIDE 400 MG TABLET PO SCH (08:32)
[2016-10-16] MEDS: PANTOPROZOLE 40MG TABLET PO SCH ×2 (08:32→21:20)
[2016-10-16] MEDS: SENNA/DOCUSATE TABLET PO SCH (08:32)
[2016-10-16] MEDS: CLOTRIM/BETAMETH 1%/0.05% CRM TP SCH (08:33)
[2016-10-16] MEDS: FLUTICASONE/VILANTEROL 200-25MCG/INH INH SCH (08:33)
[2016-10-16] MEDS: FLUTICASONE NASAL SPRAY 16GM NAS SCH (08:33)
[2016-10-16] MEDS: SODIUM CHLORIDE FLUSH 10ML SYR IVF SCH ×2 (08:34→21:20)
[2016-10-16] MEDS: FLUCONAZOLE 200 MG/100 ML 100 ML IV SCH (10:39)
[2016-10-16] MEDS: LORATADINE 10 MG TABLET PO SCH (10:39)
[2016-10-16] MEDS: FAMOTIDINE 20 MG TABLET PO SCH (10:39)
[2016-10-16 12:00] VITALS: BP 146/70
[2016-10-16] MEDS: LOPERAMIDE 2 MG CAPSULE PO PRN (13:50)
[2016-10-16 18:38] VITALS: BP 155/69
[2016-10-16] MEDS: ONDANSETRON 2MG/ML, 2ML IVPush PRN (18:43)
[2016-10-16 20:00] VITALS: BP 145/62
[2016-10-17] MEDS: CLOTRIM/BETAMETH 1%/0.05% CRM TP SCH ×3 (01:09→21:15)
[2016-10-17 02:00] VITALS: BP 145/65
[2016-10-17] MEDS: LACTOBACILLUS CHEW TABLET PO SCH ×4 (05:21→21:15)
[2016-10-17] MEDS: LINEZOLID PMX 600MG/300ML 300 ML IV SCH (05:21)
[2016-10-17] MEDS: ACYCLOVIR OINT 5%, 15GM TP SCH ×5 (05:23→21:00)
[2016-10-17 08:00] VITALS: BP 129/57
[2016-10-17] MEDS: FLUTICASONE NASAL SPRAY 16GM NAS SCH (09:00)
[2016-10-17] MEDS: FLUTICASONE/VILANTEROL 200-25MCG/INH INH SCH (09:00)
[2016-10-17] MEDS: INSULIN ASPART 100 UNITS/ML, PEN SQ-INSULIN SCH ×3 (09:03→16:00)
[2016-10-17] MEDS: CALCIUM ACETATE 667 MG CAPSULE PO SCH ×3 (09:45→17:04)
[2016-10-17] MEDS: SODIUM CHLORIDE FLUSH 10ML SYR IVF SCH ×2 (09:46→21:15)
[2016-10-17] MEDS: FUROSEMIDE 80 MG TABLET PO SCH (09:46)
[2016-10-17] MEDS: PANTOPROZOLE 40MG TABLET PO SCH ×2 (09:47→21:15)
[2016-10-17] MEDS: SENNA/DOCUSATE TABLET PO SCH (09:47)
[2016-10-17] MEDS: MAGNESIUM OXIDE 400 MG TABLET PO SCH (09:47)
[2016-10-17] MEDS: FLUCONAZOLE 200 MG/100 ML 100 ML IV SCH (09:48)
[2016-10-17] MEDS: FAMOTIDINE 20 MG TABLET PO SCH (12:31)
[2016-10-17] MEDS: ONDANSETRON 2MG/ML, 2ML IVPush PRN (12:59)
[2016-10-17 13:23] LABS: BLOOD UREA NITROGEN 39 mg/dL (7-18)
[2016-10-17 15:54] VITALS: BP 146/66
[2016-10-17 20:00] VITALS: BP 154/63
[2016-10-18 03:03] VITALS: BP 107/61
[2016-10-18 04:50] LABS: BLOOD UREA NITROGEN 25 mg/dL (7-18)
[2016-10-18] MEDS: LACTOBACILLUS CHEW TABLET PO SCH ×3 (06:00→16:00)
[2016-10-18] MEDS: ACYCLOVIR OINT 5%, 15GM TP SCH ×4 (06:00→18:00)
[2016-10-18] MEDS: SENNA/DOCUSATE TABLET PO SCH (08:42)
[2016-10-18] MEDS: FLUTICASONE NASAL SPRAY 16GM NAS SCH (08:47)
[2016-10-18] MEDS: FLUTICASONE/VILANTEROL 200-25MCG/INH INH SCH (08:47)
[2016-10-18] MEDS ORDERED: POTASSIUM CHLORIDE 20 MEQ TAB.ER.PRT PO ONE (09:00)
[2016-10-18] MEDS ORDERED: FAMOTIDINE 20 MG TABLET PO SCH (09:00)
[2016-10-18] MEDS: CALCIUM ACETATE 667 MG CAPSULE PO SCH ×3 (09:03→18:05)
[2016-10-18] MEDS: FUROSEMIDE 80 MG TABLET PO SCH (09:03)
[2016-10-18] MEDS: SODIUM CHLORIDE FLUSH 10ML SYR IVF SCH (09:03)
[2016-10-18] MEDS: MAGNESIUM OXIDE 400 MG TABLET PO SCH (09:03)
[2016-10-18] MEDS: CLOTRIM/BETAMETH 1%/0.05% CRM TP SCH (09:04)
[2016-10-18 09:28] VITALS: BP 128/72
[2016-10-18] MEDS: PANTOPROZOLE 40MG TABLET PO SCH (10:17)
[2016-10-18] MEDS: LORATADINE 10 MG TABLET PO SCH (10:17)
[2016-10-18] MEDS: FLUCONAZOLE 200 MG/100 ML 100 ML IV SCH (10:18)
[2016-10-18 13:33] VITALS: BP 121/65
[2016-10-18] MEDS ORDERED: DIPH25CA61 PO (15:38)
[2016-10-18] MEDS ORDERED: CLOT15CR6 TP (15:38)
[2016-10-18] MEDS ORDERED: ERGO500017 PO (15:38)
[2016-10-18] MEDS ORDERED: DOCU-30 PO (15:38)
[2016-10-18] MEDS ORDERED: MAGN400T26 PO (15:38)
[2016-10-18] MEDS ORDERED: ACID1TAB7 PO (15:38)
[2016-10-18] MEDS ORDERED: CALC667C PO (15:38)
[2016-10-18] MEDS ORDERED: HYDR-3240 PO (15:38)
[2016-10-18] MEDS ORDERED: ACYC15OI6 TP (15:38)
[2016-10-18] MEDS ORDERED: PANT40TA5 PO (15:38)
[2016-10-18] MEDS ORDERED: DARB60VI SQ (15:38)
[2016-10-18] MEDS ORDERED: FAMO20TA7 PO (15:38)
[2016-10-18] MEDS ORDERED: FURO80TA3 PO (15:38)
== END 2016-10-18 18:38 | disposition home health service (06) | DRG 579 ==
LOC: ED 12:45 → EDIP 16:42 → 4EST 18:42
PROVIDERS: ADMIT Internal Medicine; ATTEND Family Medicine
PROC: 0J980ZZ Drainage of Abdomen Subcutaneous Tissue and Fascia, Open Approach (ICD-10-PCS; 2016-09-28)
PROC: 0J9M0ZZ Drainage of Left Upper Leg Subcutaneous Tissue and Fascia, Open Approach (ICD-10-PCS; 2016-09-28)
PROC: 02HV33Z Insertion of Infusion Device into Superior Vena Cava, Percutaneous Approach (ICD-10-PCS; 2016-10-04)
PROC: B5181ZA Fluoroscopy of Superior Vena Cava using Low Osmolar Contrast, Guidance (ICD-10-PCS; 2016-10-04)
PROC: B548ZZA Ultrasonography of Superior Vena Cava, Guidance (ICD-10-PCS; 2016-10-04)
PROC: 30233N1 Transfusion of Nonautologous Red Blood Cells into Peripheral Vein, Percutaneous Approach (ICD-10-PCS; 2016-10-05)
PROC: 0DB68ZX Excision of Stomach, Via Natural or Artificial Opening Endoscopic, Diagnostic (ICD-10-PCS; 2016-10-05)
PROC: 5A09457 Assistance with Respiratory Ventilation, 24-96 Consecutive Hours, Continuous Positive Airway Pressure (ICD-10-PCS; 2016-10-06)
PROC: 0TB03ZX Excision of Right Kidney, Percutaneous Approach, Diagnostic (ICD-10-PCS; 2016-10-07)
PROC: 02HV33Z Insertion of Infusion Device into Superior Vena Cava, Percutaneous Approach (ICD-10-PCS; 2016-10-07)
PROC: B5181ZA Fluoroscopy of Superior Vena Cava using Low Osmolar Contrast, Guidance (ICD-10-PCS; 2016-10-07)
PROC: 5A1D60Z (ICD-10-PCS; 2016-10-07)
PROC: 0JH63XZ Insertion of Tunneled Vascular Access Device into Chest Subcutaneous Tissue and Fascia, Percutaneous Approach (ICD-10-PCS; principal; 2016-10-11)
PROC: 02HV33Z Insertion of Infusion Device into Superior Vena Cava, Percutaneous Approach (ICD-10-PCS; 2016-10-11)
PROC: B5181ZA Fluoroscopy of Superior Vena Cava using Low Osmolar Contrast, Guidance (ICD-10-PCS; 2016-10-11)
PROC: B548ZZA Ultrasonography of Superior Vena Cava, Guidance (ICD-10-PCS; 2016-10-11)
DX: L03.116 Cellulitis of left lower limb (principal); E43 Unspecified severe protein-calorie malnutrition; N17.0 Acute kidney failure with tubular necrosis; L03.311 Cellulitis of abdominal wall; K92.1 Melena; D62 Acute posthemorrhagic anemia; E87.2 Acidosis; L02.211 Cutaneous abscess of abdominal wall; N10 Acute pyelonephritis; Z68.42 Body mass index [BMI] 45.0-49.9, adult; E87.6 Hypokalemia; J44.9 Chronic obstructive pulmonary disease, unspecified; M19.90 Unspecified osteoarthritis, unspecified site; Q63.2 Ectopic kidney; R31.9 Hematuria, unspecified; B37.2 Candidiasis of skin and nail; B95.62 Methicillin resistant Staphylococcus aureus infection as the cause of diseases classified elsewhere; E11.9 Type 2 diabetes mellitus without complications; E66.01 Morbid (severe) obesity due to excess calories; E78.5 Hyperlipidemia, unspecified; E83.39 Other disorders of phosphorus metabolism; E83.42 Hypomagnesemia; G47.33 Obstructive sleep apnea (adult) (pediatric); I10 Essential (primary) hypertension; K26.9 Duodenal ulcer, unspecified as acute or chronic, without hemorrhage or perforation; L02.416 Cutaneous abscess of left lower limb; Z79.4 Long term (current) use of insulin; Z86.010 Personal history of colon polyps; Z87.891 Personal history of nicotine dependence; Z99.2 Dependence on renal dialysis; Z88.1 Allergy status to other antibiotic agents; Z88.2 Allergy status to sulfonamides; Z90.89 Acquired absence of other organs; Z90.710 Acquired absence of both cervix and uterus; Z90.49 Acquired absence of other specified parts of digestive tract
CPT/HCPCS: 10060; 36415; 36556; 36558; 36569; 50200; 71010; 74020; 74176; 76770; 76857; 76937; 77001; 77012; 80048; 80053; 80069; 80076; 81001; 82271; 82272; 82306; 82330; 82436; 82570; 82728; 82962; 83036; 83540; 83550; 83605; 83735; 83970; 84100; 84133; 84145; 84156; 84300; 84443; 84550; 85014; 85018; 85025; 85610; 86160; 86162; 86480; 86704; 86706; 86803; 86850; 86900; 86923; 87040; 87070; 87077; 87086; 87186; 87205; 87324; 87340; 88300; 88305; 88312; 88342; 94640; 96361; 96365; 96375; 99156; 99157; C1894; J0690; J0881; J1644; J1650; J1756; J1815; J2020; J2250; J2405; J2543; J2704; J2997; J3010; J3370; J3490; J7613; J7620; C1750; C1751; C9113; G0461; J0330; J1450; J1642; J2270; J2310; J2765; J3475; J7030; J7040; P9016

== ENCOUNTER → 2016-10-23 | Outpatient (CLI) | payer MEDICARE ==
[~2016-10-23] MED LIST changes: +ACID1TAB7 PO; +ACYC15OI6 TP; +CALC667C PO; +CLOT15CR6 TP; +DARB60VI SQ; +DIPH25CA61 PO; +DOCU-30 PO; +ERGO500017 PO; +FAMO20TA7 PO; +FURO80TA3 PO; +HYDR-3240 PO; +MAGN400T26 PO; +PANT40TA5 PO
== END | disposition home or self-care (01) ==
LOC: WOUND 13:53
PROVIDERS: ATTEND Internal Medicine
DX: T81.89XA Other complications of procedures, not elsewhere classified, initial encounter (principal); L02.211 Cutaneous abscess of abdominal wall; J44.9 Chronic obstructive pulmonary disease, unspecified; E11.9 Type 2 diabetes mellitus without complications; E78.5 Hyperlipidemia, unspecified; E66.01 Morbid (severe) obesity due to excess calories; G47.33 Obstructive sleep apnea (adult) (pediatric); I10 Essential (primary) hypertension; M19.90 Unspecified osteoarthritis, unspecified site; Z90.710 Acquired absence of both cervix and uterus; Z68.42 Body mass index [BMI] 45.0-49.9, adult; Z87.891 Personal history of nicotine dependence; Z90.89 Acquired absence of other organs; Z90.49 Acquired absence of other specified parts of digestive tract; Z99.2 Dependence on renal dialysis; Z79.4 Long term (current) use of insulin; Z86.14 Personal history of Methicillin resistant Staphylococcus aureus infection; Y83.8 Other surgical procedures as the cause of abnormal reaction of the patient, or of later complication, without mention of misadventure at the time of the procedure; Y92.89 Other specified places as the place of occurrence of the external cause
CPT/HCPCS: 11042; G0463; WOU0463

== ENCOUNTER 2016-11-09 12:33 | Emergency (ER) | payer MEDICARE ==
[~2016-11-09] VITALS: Ht 157.5 cm; Wt 100.7 kg
[2016-11-09 12:37] VITALS: BP 118/70
[2016-11-09 13:32] LABS: BLOOD UREA NITROGEN 10 mg/dL (7-18)
[2016-11-09] MEDS ORDERED: CEFTRIAXONE PMX 1GM/50ML 50 ML IV ONE (14:00)
[2016-11-09] MEDS ORDERED: CEFTRIAXONE 1,000 MG ONE (14:13)
[2016-11-09] MEDS ORDERED: LIDOCAINE 1%, 20ML ONE (14:13)
[2016-11-09] MEDS ORDERED: CEFTRIAXONE 1,000 MG IM ONE (14:30)
== END 2016-11-09 14:34 | disposition home or self-care (01) ==
LOC: ED 13:32
DX: N30.01 Acute cystitis with hematuria (principal); R31.0 Gross hematuria; J44.9 Chronic obstructive pulmonary disease, unspecified; E78.00 Pure hypercholesterolemia, unspecified; Z99.2 Dependence on renal dialysis; Z87.891 Personal history of nicotine dependence
CPT/HCPCS: 36415; 80048; 81001; 82040; 85025; 87077; 87086; 87186; 96372; 99284; J0696